=== PATIENT | male | born 1985 | race Two or more races ===

== ENCOUNTER 2025-06-12 21:15 | Inpatient (IN) | payer OTHER ==
[~2025-06-12] VITALS: Ht 190.5 cm; Wt 90.7 kg
[2025-06-12] MEDS ORDERED: HYOSCYAMINE SULFATE 0.125 MG TAB.SUBL SL ONE (22:30)
[2025-06-12] MEDS ORDERED: ONDANSETRON HCL 2 MG/ML VIAL IV ONE (22:30)
[2025-06-12] MEDS ORDERED: RINGERS SOLUTION,LACTATED 1,000 ML IV SCH (22:30)
[2025-06-12 23:06] LABS: BASO % 0.3 % (0.1-1.2); EOS # 0.00 (0.04-0.54); EOS % 0.0 % (0.7-7.0); LYMPH # 0.68 (1.18-3.74); LYMPH % 3.9 % (19.3-53.1); MEAN PLATELET VOLUME 10.30 fl (9.4-12.4); MONO # 1.07 (0.24-0.82); MONO % 6.1 % (4.7-12.5); NEUT # 15.57 (1.56-6.13); NEUT % 89.3 % (34.0-71.1); RED CELL DISTRIBUTION WIDTH 12.1 % (11.6-14.4)
[2025-06-12 23:19] LABS: URINE APPEARANCE Clear; URINE BILIRRUBIN Negative (NEGATIVE); URINE BLOOD Negative; URINE COLOR Yellow; URINE GLUCOSE Negative (NEGATIVE); URINE LEUKOCYTE Trace; URINE NITRATE Negative; URINE PROTEIN Trace (NEGATIVE); URINE UROBILINOGEN 1.0 E.U./dl
[2025-06-12 23:22] LABS: URINE BACTERIA 7.2 uL (0.0-1933); URINE RBC 3.6 uL (0.0-20.8); URINE WBC 1.8 uL (0.0-23.2)
[2025-06-12 23:27] LABS: URINE CAST 0.29 uL (0.0-1.40); URINE EPITHELIAL CELLS 1.0 uL (0.0-38.8); URINE KETONE 40 (NEGATIVE)
[2025-06-12 23:29] LABS: ALT/SGPT 38.0 U/L (12-78); AST/SGOT 17.0 U/L (15-37); BILIRUBIN TOTAL 1.84 mg/dL (0.3-1.2); BUN CREA RATIO 8.0 (7.0-25.0); CREATININE SERUM 0.93 mg/dL (0.70-1.30); GFR 89.1; GLOBULINA 3.2 G/DL (2.4-3.5); GLUCOSE FASTING 129.0 mg/dL (65-100); OSMOLALITY SERUM 275.0 MOSM/KG (275-295)
[2025-06-13] MEDS ORDERED: CIPROFLOXACIN IN 5 % DEXTROSE 400 MG/200 ML PIGGYBAG IV ONE (00:15)
[2025-06-13 00:16] LABS: COVID-19 AG NEGATIVE (NEGATIVE)
[2025-06-13] MEDS ORDERED: LACTOBACILLUS ACIDOPHILUS 1 CAP CAP PO STA (01:56)
[2025-06-13] MEDS ORDERED: FAMOTIDINE/PF 20 MG/2 ML VIAL IV PUSH STA (01:56)
[2025-06-13] MEDS ORDERED: PROMETHAZINE HCL 50 MG/ML AMPUL IM STA (01:56)
[2025-06-13 04:32] LABS: BASO % 0.3 % (0.1-1.2); EOS # 0.00 (0.04-0.54); EOS % 0.0 % (0.7-7.0); LYMPH # 0.60 (1.18-3.74); LYMPH % 3.3 % (19.3-53.1); MEAN PLATELET VOLUME 10.40 fl (9.4-12.4); MONO # 0.98 (0.24-0.82); MONO % 5.3 % (4.7-12.5); NEUT # 16.67 (1.56-6.13); NEUT % 90.8 % (34.0-71.1); RED CELL DISTRIBUTION WIDTH 12.2 % (11.6-14.4)
[2025-06-13] MEDS ORDERED: ONDANSETRON HCL 2 MG/ML VIAL IV PRN (08:00)
[2025-06-13] MEDS ORDERED: KETOROLAC TROMETHAMINE 30 MG VIAL IV PRN (08:00)
[2025-06-13] MEDS ORDERED: PIPERACILLIN/TAZOBACTAM SODIUM 3.375 GM VIAL IV SCH (12:00)
[2025-06-13 23:40] VITALS: BP 95/61; O2SAT 98
[2025-06-14 08:00] VITALS: BP 106/66; O2SAT 98
[2025-06-14 16:47] VITALS: BP 95/59
[2025-06-15 00:44] VITALS: BP 91/54; O2SAT 100
[2025-06-15 09:35] VITALS: BP 104/67
[2025-06-15 17:23] VITALS: BP 109/69; O2SAT 99
[2025-06-15 23:07] LABS: chla t Negative (Negative); neiss Negative (Negative)
[2025-06-16 01:21] VITALS: BP 110/68; O2SAT 98
[2025-06-16 07:21] LABS: BASO % 0.6 % (0.1-1.2); EOS # 0.26 (0.04-0.54); EOS % 3.7 % (0.7-7.0); LYMPH # 2.11 (1.18-3.74); LYMPH % 29.9 % (19.3-53.1); MEAN PLATELET VOLUME 10.70 fl (9.4-12.4); MONO # 0.77 (0.24-0.82); MONO % 10.9 % (4.7-12.5); NEUT # 3.85 (1.56-6.13); NEUT % 54.6 % (34.0-71.1); RED CELL DISTRIBUTION WIDTH 12.8 % (11.6-14.4)
[2025-06-16 08:54] VITALS: BP 94/60
== END 2025-06-16 10:23 | disposition home or self-care (01) | DRG 392 ==
LOC: ER 21:15 → EDBD 21:28 → MEDI 06-13 07:55 → SEC-K 06-13 07:55 → MEDI 06-14 00:16
PROVIDERS: Emergency Medicine; General Practice; Internal Medicine Infectious Disease; ADMIT Internal Medicine; ATTEND Internal Medicine
PROC: BW21YZZ Computerized Tomography (CT Scan) of Abdomen and Pelvis using Other Contrast (ICD-10-PCS; principal; 2025-06-13)
DX: A09 Infectious gastroenteritis and colitis, unspecified (principal); K52.89 Other specified noninfective gastroenteritis and colitis